=== PATIENT | male | born 1995 | race Caucasian/White ===

== ENCOUNTER 2023-05-01 16:15 | Emergency (ER) | payer OTHER, SELFPAY ==
[2023-05-01 16:30] VITALS: BP 134/75; PULSE 79; RESP 16; TEMP 36.2; O2SAT 99
--- NOTE | 2023-05-01 17:45 | DI.RAD_ITS ---
Exam(s) XR ANKLE LT COMPLETE EXAM: XR ANKLE LT COMPLETE CLINICAL HISTORY: Pain, Swelling TECHNIQUE: 2D digital imaging was performed. Three views. COMPARISON: No exams were available for comparison FINDINGS: BONES: No acute fracture is present. No bony destructive lesion is seen. JOINTS:The ankle mortise is normally aligned. SOFT TISSUE: Marked soft tissue swelling over the lateral malleolus. IMPRESSION: Soft tissue swelling. DATA REPOSITORY: RADIATION DOSE DELIVERED:
--- NOTE | 2023-05-01 18:45 | DI.VRAD_ITS ---
PROCEDURE INFORMATION: Exam: XR Left Ankle Exam date and time: 05/01/2023 6:14 PM Age: 27 years old Clinical indication: Other: Pain, swelling TECHNIQUE: Imaging protocol: Radiologic exam of the left ankle. Views: 3 or more views. COMPARISON: No relevant prior studies available. FINDINGS: Bones/joints: No acute fracture or dislocation Soft tissues: Diffuse swelling IMPRESSION: Diffuse swelling without discrete fracture Dictated and Authenticated by: Elia Tellez MD. Ordering:SHERI Strauss MD
--- NOTE | 2023-05-01 18:46 | ED.GENADUL_ITS ---
Discharge Plan Disposition Patient Disposition: Home Condition: Stable Discharge Details Clinical Impression: Left ankle sprain Primary Care Provider: None,None ED Provider: Rica Dunlap Home Meds and New Rx's Prescriptions: No Action No Known Home Meds Discharge Instructions Instructions: Ankle Sprain (ED) Additional Instructions: Rest, ice, compression elevation. Wear the walking boot when up and about. Please take Tylenol or Ibuprofen with food every 4-6 hours as needed for pain and swelling. No obvious fracture noted on the x-rays at this time. Follow up with primary care provider in 3-5 days. Return to ED sooner if any worsening or concerns. Increase oral fluids. Stand Alone Forms: Work Release Medical Decision Making 27-year-old male presents to the ER with chief complaint of left ankle pain swelling he rolled his ankle while stepping off a stoop at approximately 3 PM today. He states that he was carrying a tire fell down and heard a pop. X-ray results noted below. No obvious fracture. Will place patient in a walking boot and instructed on RICE procedures. This text was generated using [employer] system, please disregard any oddities of phrase or misspellings. Imaging Data Radiologic Study: Imaging: X-Ray Radiologist's impression: Imaging protocol: Radiologic exam of the left ankle. Views: 3 or more views. COMPARISON: No relevant prior studies available. FINDINGS: Bones/joints: No acute fracture or dislocation Soft tissues: Diffuse swelling IMPRESSION: Diffuse swelling without discrete fracture Thank you for allowing us to participate in the care of your patient. Dictated and Authenticated by: Elia Tellez MD HPI General Mode of arrival: ambulatory . Date/Time Provider Initiated Documentation: 05/01/23 17:51 . Limitations to Documentation: no limitations . Information obtained by: patient, RN notes reviewed and old records reviewed . HPI Narrative: 27-year-old male presents to the ER with chief complaint of left ankle pain swelling he rolled his ankle while stepping off a stoop at approximately 3 PM today. He states that he was carrying a tire fell down and heard a pop. Related Data Home Medications Medication Instructions Recorded Confirmed Unknown [No Known Home Meds] 05/01/23 05/01/23 Allergies Allergy/AdvReac Type Severity Reaction Status Date / Time No Known Allergies Allergy Unverified 05/01/23 16:32 General Stated Complaint: Orthopedic CIARA: 4 Review of Systems All systems reviewed & are unremarkable except as noted in HPI and below Musculoskeletal Musculoskeletal: Reports as per HPI, Reports arthralgias and Reports joint swelling PFSH All Active Problems (Updated 05/01/23 @ 19:03 by Rica Dunlap NP) Left ankle sprain (Acute) Social History Smoking/Tobacco Use Status: Never Smoking risk assessment performed?: Yes Alcohol Intake: never Do you feel safe at home: Yes Do you feel safe in your relationship?: Yes Exam Extrem Left lower extremity: ankle Details: tenderness Location: of the lateral malleolus and swelling Details: laterally Course Vital Signs Vital signs: Vital Signs Temperature 36.2 C L 05/01/23 16:30 Pulse 79 05/01/23 16:30 Respiratory Rate 16 05/01/23 16:30 Blood Pressure 134/75 05/01/23 16:30 Pulse Oximetry 99 05/01/23 16:30 Temperature 36.2 C L 05/01/23 16:30 Temperature Source Skin 05/01/23 16:30 Pulse 79 05/01/23 16:30 Respiratory Rate 16 05/01/23 16:30 Blood Pressure 134/75 05/01/23 16:30 Blood Pressure Position Sitting 05/01/23 16:30 Pulse Oximetry 99 05/01/23 16:30 Oxygen Delivery Method Room Air 05/01/23 16:30 Oxygen Flow Rate 0 05/01/23 16:30 Pain Level 2 05/01/23 16:30
== END 2023-05-01 19:21 | disposition home or self-care (01) ==
PROVIDERS: Emergency Provider Registered Nurse Emergency
DX: S93.402A Sprain of unspecified ligament of left ankle, initial encounter (principal); X58.XXXA Exposure to other specified factors, initial encounter
CPT/HCPCS: 29515; 99283; 73610